=== PATIENT | female | born 2000 | race Caucasian/White ===

== ENCOUNTER → 2022-10-23 07:36 | Outpatient (CLI) | payer OTHER, SELFPAY ==
--- NOTE | 2022-10-23 | CA_ITS ---
FINAL REPORT TECHNIQUE: Grayscale, color Doppler and duplex Doppler ultrasound of the kidneys, aorta and renal arteries was performed. Multiple velocities were measured. CLINICAL HISTORY: Hypertensive episode at a health fair FINDINGS: Aorta velocity: 129.9 cm/sec Right kidney: 10.5 cm. No evidence of hydronephrosis or mass. Right intrarenal RI: 0.6 Right renal artery velocity: 162 cm/sec. Right RAR (Renal artery-Aortic Ratio): 1.25 Left Kidney: 10.4 cm. No evidence of hydronephrosis or mass. Left intrarenal RI: 0.6 Left renal artery velocity: 181.7 cm/sec. Left RAR (Renal Artery-Aortic Ratio): 1.4 IMPRESSION: Normal right renal arterial Doppler exam Less than 60% stenosis of the left renal artery. CT angiogram or postcontrast MR angiogram would be more sensitive for evaluation of possible renal artery stenosis. Reviewed, Interpreted and Dictated by Marshall Rogers III, MD Transcribed by Jessie Diego Authenticated and [facility]
== END ==
PROVIDERS: PCP Nurse Practitioner Family; Visit Provider Nurse Practitioner Family
DX: I10 Essential (primary) hypertension (principal)
CPT/HCPCS: 93976

== ENCOUNTER 2024-04-19 09:08 | Emergency (ER) | payer SELFPAY ==
[2024-04-19 09:19] VITALS: BP 131/86; PULSE 90; RESP 20; TEMP 36.6; O2SAT 99; BMI 37.1
--- NOTE | 2024-04-19 09:30 | EXP.UTC ---
Discharge Plan Disposition Patient Disposition: Home, Self-Care Condition: Good Prescriptions Prescriptions: New azithromycin [Zithromax Z-Hammad] 250 mg tablet See Rx Instructions .ROUTE .COMPLEX 5 Days Qty: 6 0RF Rx Instructions: For 250 mg dose pack: take 500 mg today (day 1), then 250 mg for 4 days (days 2-5) methylprednisolone [Medrol (Hammad)] 4 mg tablets,dose pack See Rx Instructions .Route .COMPLEX 6 Days Qty: 21 0RF Rx Instructions: taper pack; guaifenesin [Mucinex] 1,200 mg tablet extended release 12hr 1,200 mg PO Q12H PRN (Reason: congestion) Qty: 20 0RF No Action albuterol 90 mcg/actuation Aerosol 90 mcg INHALATION DIRECTED Referrals Follow up/Referrals: Shaina Duvall APRN [Primary Care Provider] - See instructions Activity Restrictions/Add. Instructions Additional Instructions/Restrictions: Start antibiotic today. Be sure to complete entire prescription even if feeling better Monitor temp. Tylenol every 4 hours as needed and / or ibuprofen every 6 hours as needed ( As long as your primary care physician has told you that it ok to take both. For fever/aches/pains ER if no less than 101 despite Tylenol or Motrin Humidifier/vaporizer or hot steamy shower Inhaler every 4-6 hours as needed like we discussed. If unsure how to use it, ask pharmacist to demonstrate how. Should help open airways and improve cough, wheezing, and shortness of breath Mucinex during the day for your cough and cough suppressant only at night. Be sure to drink lots of water. Insurance may not cover a prescriptions for mucinex. Might be cheaper to get 400mg tablets and take 2 tablet in the morning, mid-day and evening with lots of water. *Promethazine DM cough syrup will cause drowsiness. Use only at night. No driving, operating machinery or caring for small children after taking it *Tessalon Perles will not cause drowsiness but use at bedtime to help stop cough so that you may get some rest. *Start steroid today. Helps with inflammation therefore, cough and wheezing. Follow directions on the package. Reviewed side effects. Patient reports taking them before. Follow up IMMEDIATELY for new or worsening of symptoms OR no noticeable improvement over the next 48-72 hours. 911 immediately for any life threatening symptoms such as chest pain or difficulty breathing Clinical Impressions Clinical Impression: Bronchitis Stand Alone Forms Stand Alone Forms: Work/School Release Instructions Patient Instructions: Acute Bronchitis, DI for Acute Bronchitis Print Language Print Language: Kazakh Discharge ED Provider: Jen Tariq [facility] [place] General Stated complaint: SOA- has asthma, inhaler not working Mode of Arrival: Ambulatory Source of Information: Patient Time Seen by Provider: 04/19/24 09:30 Description of Symptoms (Recalled from Triage Doc. by RN): SOA HEENT Symptoms (Recalled from RN notes): No Resp Symptoms (Recalled from RN notes): Yes Skin Symptoms (Recalled from RN notes): No MS Symptoms (Recalled from RN notes): No Functional Status (Recalled from RN notes): WNL History of Present Illness Provider Complaint: Patient states that she has a hx of asthma States that she has been having cough and chest congestion and when she gets coughing feels like she cant catch her breath States that she has been using her inhaler but not helping much and her congestion in her chest isnt any better Related Data Home Medications ?Medication ?Instructions ?Recorded ?Confirmed albuterol 90 mcg/actuation aerosol 90 mcg inhalation DIRECTED 04/19/24 04/19/24 inhaler Previous Rx's ?Medication ?Instructions ?Recorded azithromycin 250 mg tablet See Rx Instructions PO .COMPLEX 5 04/19/24 (Zithromax Z-Hammad) days #6 tabs guaifenesin 1,200 mg tablet, 1,200 mg PO Q12H PRN congestion 04/19/24 extended release 12 hr (Mucinex) #20 tabs methylprednisolone 4 mg tablets in See Rx Instructions .Route 04/19/24 a dose pack (Medrol (Hammad)) .COMPLEX 6 days #21 tabs Allergies Allergy/AdvReac Type Severity Reaction Status Date / Time cetirizine (From Zyrtec) Allergy Verified 11/26/18 13:19 latex Allergy Verified 11/26/18 13:19 lidocaine Allergy Verified 11/26/18 13:19 Worker's Comp Is this a Worker's Comp case?: No [facility] Disclaimer: The information contained in this section may have been updated after the patient was seen, as this information can be updated by other users. Social History Smoking Status: Never smoker alcohol intake: never substance use type: denies use current occupational status: student Travel in the last 8 weeks: None household members: family housing: house ROS Obtained: Yes All systems reviewed & no additional complaints except as documented and Yes Systems reviewed as appropriate & no additional complaints except as documented Constitutional Constitutional: Reports system reviewed and no additional complaints, except as documented, Reports as per HPI, Denies body ache, Denies chills, Denies fever(s) and Denies headache(s) ENT Ears, Nose, Mouth, and Throat: Reports system reviewed and no additional complaints, except as documented, Reports as per HPI and Denies headache(s) Cardiovascular Cardiovascular: Reports system reviewed and no additional complaints, except as documented and Reports as per HPI Respiratory Respiratory: Reports system reviewed and no additional complaints, except as documented, Reports as per HPI, Reports shortness of breath (after coughing episode), Reports chest congestion and Reports cough Neurologic Neurologic: Denies headache(s) Physical Exam General General appearance: alert and in no apparent distress ENT ENT exam: Present mucous membranes moist Respiratory Respiratory exam: Present normal lung sounds bilaterally; Absent respiratory distress or wheezes Cardiovascular Cardiovascular exam: Present regular rate, normal rhythm and normal heart sounds Neurological Exam Neurological exam: Present alert, oriented X3 and normal gait Medical Decision Making Medical Records Screening: Per USPSTF and CDC recommendations, given the prevalence of disease in our region, it is our hospital?s policy to screen for HIV and viral Hepatitis for all patients aged 18 and over and those with ongoing risk factors. Damian Inquiry Pt receiving controlled substance: No Damian was queried for this patient: No Vital Signs: 04/19/24 09:19 Temperature 97.9 F Temperature Source Oral Pulse Rate [Left Radial] 90 Respiratory Rate 20 Blood Pressure [Left Arm] 131/86 Blood Pressure Mean [Left Arm] 101 02 Sat by Pulse Oximetry 99
[2024-04-19 09:37] VITALS: BP 131/86; PULSE 90; RESP 20; TEMP 36.6
== END 2024-04-19 09:39 | disposition home or self-care (01) ==
PROVIDERS: Emergency Provider Nurse Practitioner; PCP Nurse Practitioner Family
DX: J20.9 Acute bronchitis, unspecified (principal); R05.9 Cough, unspecified
CPT/HCPCS: 99212; G0381

== ENCOUNTER 2024-06-06 16:25 | Emergency (ER) | payer OTHER, SELFPAY ==
[2024-06-06 16:42] VITALS: BP 150/66; PULSE 109; RESP 18; TEMP 36.7; O2SAT 98; BMI 42.8
[2024-06-06 16:51] LABS: UTC Strep Screen (Rapid) Negative (Negative)
--- NOTE | 2024-06-06 17:03 | ED_ITS ---
Discharge Plan Disposition Patient Disposition: Home, Self-Care Condition: Good Prescriptions Prescriptions: New ufzfrtktxliyqyk-inqqudmqt-XB [Bromfed DM] 2-30-10 mg/5 mL syrup 10 ml PO Q4-6H PRN (Reason: cough/sinus) Qty: 200 0RF Referrals Follow up/Referrals: Shaina Duvall APRN [Primary Care Provider] - See instructions Activity Restrictions/Add. Instructions Additional Instructions/Restrictions: Take medication as prescribed. Increase fluid and rest. Call back at [phone] for test results. Follow up with PCP/clinic if symptoms persist or worsen. Clinical Impressions Clinical Impression: Upper respiratory tract infection Qualifiers: URI type: unspecified viral URI Qualified Code(s): J06.9 - Acute upper respiratory infection, unspecified Instructions Patient Instructions: DI for Viral Upper Respiratory Infection -- Adult Print Language Print Language: Nigerien Discharge ED Provider: Radha Vale [facility] General Stated complaint: head congestion sore throat Mode of Arrival: Ambulatory Source of Information: Patient Time Seen by Provider: 06/06/24 17:02 Description of Symptoms (Recalled from Triage Doc. by RN): CONGESTION, SORE THROAT, COUGH HEENT Symptoms (Recalled from RN notes): Yes Resp Symptoms (Recalled from RN notes): Yes Skin Symptoms (Recalled from RN notes): No MS Symptoms (Recalled from RN notes): No Functional Status (Recalled from RN notes): WNL History of Present Illness Provider Complaint: Pt reports that she started feeling bad on Friday with cough, runny nose, headache, and sore throat. She denies taking anything for her symptoms. Related Data Previous Rx's ?Medication ?Instructions ?Recorded kvmdrkjytxmmkxq-yuraorfnvurqsvt-BW 10 ml PO Q4-6H PRN cough/sinus 06/06/24 2 mg-30 mg-10 mg/5 mL oral syrup #200 mL (Bromfed DM) Allergies Allergy/AdvReac Type Severity Reaction Status Date / Time cetirizine (From [facility]) Allergy Verified 11/26/18 13:19 latex Allergy Verified 11/26/18 13:19 lidocaine Allergy Verified 11/26/18 13:19 Worker's Comp Is this a Worker's Comp case?: No [facility] Disclaimer: The information contained in this section may have been updated after the patient was seen, as this information can be updated by other users. Social History Smoking Status: Never smoker alcohol intake: never substance use type: denies use current occupational status: student Travel in the last 8 weeks: None household members: family housing: house Have you lived/traveled outside [place] in past 30 days?: No Contact w/someone who lives/traveled outside [place] past 30 days?: No Exposure to someone with infectious disease in past 14 days?: No Do you have a fever (greater than 100.4 F or 38 C)?: No Have you tested positive for COVID-19: No Exposed to someone with COVID-19 in past 14 days?: No Do you have a sore throat?: Yes Do you have a cough?: Yes Do you have any weakness?: No Do you have any diarrhea?: No Are you experiencing any unusual bleeding?: No Do you have any muscle aches/pain?: No Do you have any abdominal pain?: No Are you experiencing loss of taste or smell?: No ROS Obtained: Yes All systems reviewed & no additional complaints except as documented Constitutional Constitutional: Reports system reviewed and no additional complaints, except as documented and Reports headache(s) Eyes Eyes: Reports system reviewed and no additional complaints, except as documented ENT Ears, Nose, Mouth, and Throat: Reports system reviewed and no additional complaints, except as documented, Reports otalgia, Reports headache(s), Reports nasal congestion, Reports nasal discharge, Reports odynophagia and Reports sore throat Cardiovascular Cardiovascular: Reports system reviewed and no additional complaints, except as documented Respiratory Respiratory: Reports system reviewed and no additional complaints, except as d ocumented and Reports non-productive cough Gastrointestinal Gastrointestingal: Reports system reviewed and no additional complaints, except as documented and odynophagia Genitourinary Female Genitourinary: Reports system reviewed and no additional complaints, except as documented Musculoskeletal Musculoskeletal: Reports system reviewed and no additional complaints, except as documented Integumentary/Breasts Skin/Breast: Reports system reviewed and no additional complaints, except as documented Neurologic Neurologic: Reports system reviewed and no additional complaints, except as documented and Reports headache(s) Endocrine Endocrine: Reports system reviewed and no additional complaints, except as documented Hematologic/Lymphatic Henatologic/Lymphatic: Reports system reviewed and no additional complaints, except as documented Allergic/Immunologic Allergic/Immunologic: Reports system reviewed and no additional complaints, except as documented Physical Exam General General appearance: alert Comment: ill appearing Head Head exam: atraumatic and normocephalic Eye Eye exam: Present normal appearance Expanded ENT Exam External ear exam: Present normal external inspection TM/Canal exam: Bilateral TM: bulging and effusion Nasal speculum exam: Bilateral: other (clear drainage with edematous mucosa) Mouth exam: Present normal external inspection Teeth exam: Present normal inspection Throat exam: Present tonsillar erythema Neck Neck exam: Present normal inspection; Absent lymphadenopathy Chest Chest inspection: Present normal inspection and symmetric chest wall rise Respiratory Respiratory exam: Present normal lung sounds bilaterally Cardiovascular Cardiovascular exam: Present regular rate, normal rhythm and normal heart sounds Abdominal Exam Abdominal exam: Present soft and normal bowel sounds Extremities Exam Extremities exam: Present normal inspection Back Exam Back exam: Present normal inspection Neurological Exam Neurological exam: Present alert and oriented X3 Psychiatric Psychiatric exam: Present normal affect and normal mood Skin Skin exam: Present warm, dry and intact Lymphatic Lymphatic Findings: no adenopathy Medical Decision Making Medical Records Screening: Per USPSTF and CDC recommendations, given the prevalence of disease in our region, it is our hospital?s policy to screen for HIV and viral Hepatitis for all patients aged 18 and over and those with ongoing risk factors. Damian Inquiry Pt receiving controlled substance: No Damian was queried for this patient: No Vital Signs: 06/06/24 16:42 Temperature 98.1 F Temperature Source Oral Pulse Rate [Left Radial] 109 H Respiratory Rate 18 Blood Pressure [Left Arm] 150/66 H Blood Pressure Mean [Left Arm] 94 02 Sat by Pulse Oximetry 98 Lab Data Lab results reviewed: Yes I reviewed the patient's lab results. Lab Results 06/06/24 16:42: Strep Scn Rapid Clinic Negative Orders (Tests/Meds): ORDERS Category Date Time Status Strep Screen Confirmation Stat Micro 06/06/24 16:42 Received
[2024-06-06 17:28] VITALS: BP 150/66; PULSE 109; RESP 18; TEMP 36.7
[2024-06-06 18:09] LABS: Coronavirus 19, PCR Not Detected (NotDetected); Influenza B, PCR Not Detected (NotDetected)
[2024-06-06 19:00] LABS: Influenza A, PCR Detected (NotDetected)
== END 2024-06-06 17:29 | disposition home or self-care (01) ==
PROVIDERS: Emergency Provider Nurse Practitioner Family; PCP Nurse Practitioner Family
DX: J06.9 Acute upper respiratory infection, unspecified (principal)
CPT/HCPCS: 87636; 87880; 99213; G0381